=== PATIENT | female | born 1935 | race Caucasian/White ===

== ENCOUNTER → 2017-12-09 | Outpatient (CLI) | payer MEDICARE, BC ==
[2016-04-07 13:40] VITALS: BMI 25.1
[~2017-12-09] MED LIST: ACYC800T99 PO; AMLO-96 PO; AMLO-99 PO; AMLO2.5T74 PO; ARMTHY90PT PO; ATEN-65 PO; CAND16TA PO; CAND8TAB PO; CHOL10005 PO; CLOP75TA43 PO; CYAN25007 SL; DOXY-179; EPIN0.3P15 IM; EST42T PV; ETHI1TAB16 PO; ETHINYL ESTRADIOL PO; FAM20 PO; FISH1200 PO; FLUT15.88 NS; FLUT16SP19 NS; FLUV20CA3 PO; FURO-45 PO; GLUC-308 PO; HYDR-2963 PO; HYDR-2966 PO; HYDR-2970 PO; HYDR2TAB41 PO; HYDR473S9 PO; IPRA3AMP10 IH; LACT1CAP6 PO; LAN30PT PO; LANS15CA38 PO; LANS30CA70 PO; LEVO250T37 PO; LIO5 PO; LOS50 PO; LOSA50TA72 PO; METH4TAB57 PO; METO100T20 PO; MORP10SO10 PO; MULTIMINERAL PO; NITR-1 PO; NITR-106 PO; NITR25CA2 PO; NITR50CA35 PO; NYST15CR33 TP; OXYC5CAP21 PO; OXYGEN INH; PANTOTHENIC ACID 500 MG PO; PNEU0.5D3 IM; PRED20TA6 PO; PRI250 PO; PRIM250T73 PO; SPIR25TA80 PO; TOBOO OS; UBID100C48 PO; VITA1CAP48 PO; [UNRECOGNIZED DRUG - CODE] PO; [UNRECOGNIZED DRUG - CODE] PO; [UNRECOGNIZED DRUG - CODE] PO; [UNRECOGNIZED DRUG - CODE] PO; [UNRECOGNIZED DRUG - OTHER] PO
--- NOTE | 2017-12-09 14:09 | RADIOLOGY IMAGING REPORT ---
FACILITY: [facility] PATIENT NAME: CHARITY DE LOS SANTOS : [id number] MR: [id number] V: [id number] EXAM DATE: ORDERING PHYSICIAN: NEIL IVY TECHNOLOGIST: Jil Valera PROCEDURE:BILATERAL DIGITAL SCREENING MAMMOGRAM WITH CAD ASSISTED INTERPRETATION & 3D TOMOSYNTHESIS COMPARISON:Prior mammograms 10/24/16 & 06/19/15 & 12/17/13. INDICATIONS:SCREENING FINDINGS: The breast tissue is almost entirely fatty replaced. Benign vascular calcifications are noted. There is no dominant mass, suspicious cluster of microcalcifications or persistent areas of architectural distortion in either breast. DIAGNOSTIC CATEGORY 1--NEGATIVE. RECOMMENDATIONS: ROUTINE MAMMOGRAM AND CLINICAL EVALUATION IN 1 YEAR. IMPRESSION: BIRADS 1: Negative. Dictated by: Gustavo Rodriguez M.D. on 12/09/2017 at 13:52 Transcribed by: JULIO CESAR on 12/09/2017 at 14:00 Approved by: Gustavo Rodriguez M.D. on 12/09/2017 at 14:08 [facility]
== END ==
LOC: MAMO 01:54
PROVIDERS: ATTEND Emergency Medicine
DX: Z12.31 Encounter for screening mammogram for malignant neoplasm of breast (principal); R92.1 Mammographic calcification found on diagnostic imaging of breast
CPT/HCPCS: 77063; 77067

== ENCOUNTER → 2017-12-17 | Outpatient (REF) | payer MEDICARE, BC ==
[2016-04-07 13:40] VITALS: BMI 25.1
== END ==
LOC: ZZSENDIN 11:13
DX: N30.01 Acute cystitis with hematuria (principal); R82.79 Other abnormal findings on microbiological examination of urine
CPT/HCPCS: 81001; 87088

== ENCOUNTER → 2018-02-20 | Outpatient (CLI) | payer MEDICARE, BC ==
[2016-04-07 13:40] VITALS: BMI 25.1
[~2018-02-20] MED LIST changes: +AMLO-111 PO; +AMLO-113 PO; -AMLO-96 PO; -AMLO-99 PO; -AMLO2.5T74 PO; +AMLO2.5T76 PO; +CHOL100052 PO; +HYDR-4225 PO; -LOSA50TA72 PO; +LOSA50TA74 PO
[2018-02-20 09:53] LABS: PLATELET COUNT, AUTOMATED 287 K/uL (150-450)
[2018-02-20 10:37] LABS: LDL CHOLESTEROL 122 mg/dl
== END ==
LOC: LAB 09:27
PROVIDERS: ATTEND Emergency Medicine
DX: I10 Essential (primary) hypertension (principal); E03.9 Hypothyroidism, unspecified; E55.9 Vitamin D deficiency, unspecified
CPT/HCPCS: 36415; 82040; 82247; 82306; 82310; 82374; 82435; 82465; 82565; 82947; 83718; 84075; 84132; 84155; 84295; 84436; 84443; 84450; 84460; 84478; 84480; 84520; 85007; 85027

== ENCOUNTER 2018-06-04 12:50 | Emergency (ER) | payer MEDICARE, BC ==
[2016-04-07 13:40] VITALS: Wt 79.4 kg
[~2018-06-04 12:50] MED LIST changes: -AMLO-111 PO; -AMLO-113 PO; +AMLO-125 PO; +AMLO-127 PO; -AMLO2.5T76 PO; +AMLO2.5T78 PO; -LOSA50TA74 PO; +LOSA50TA80 PO; +OXYGENHOME INH
--- NOTE | 2018-06-04 13:05 | ER Report ---
History and Physical Time Seen By MD: 13:05 Hx. of Stated Complaint: pt presents with hx of having low sats at home.Told to come by pmd's office. Has had cough and sob for one week HPI/ROS CHIEF COMPLAINT: Shortness of breath, cough, increased oxygen demand HISTORY OF PRESENT ILLNESS: 82-year-old female patient presents to emergency room with complaint of shortness of breath, cough and increased oxygen demand. Patient states she's been sick for approximately one week. She states that she has had a frequent cough. She states she has been needing to wear her oxygen all the time. Her daughter states this been going on for the past month or so and not solely related to her illness. Patient states that today she checked her oxygen levels at home and she was in the 70s. She did switch over to her larger oxygen concentrator and that was able to keep her off about 90% on 2 L. She did call to her primary care provider who recommended coming to the emergency room for further evaluation. Patient denies having any fevers but states she has had chills. She denies any nausea, vomiting or diarrhea. Patient denies having any chest pain. REVIEW OF SYSTEMS: Respiratory: As noted above Cardiovascular: No chest pain, no palpitations. Gastrointestinal: No vomiting, no abdominal pain. Musculoskeletal: No back pain. Allergies: Coded Allergies: azithromycin (Verified Allergy, Severe, ANAPHYLAXIS, 02/02/17) prednisolone (Verified Allergy, Severe, ANAPHYLAXIS, 02/02/17) Cephalosporins (Verified Allergy, Intermediate, RASH, 02/02/17) Milk Containing Products (Verified Allergy, Intermediate, HIVES, SOB,DIARRHEA, 02/02/17) NSAIDS (Non-Steroidal Anti-Inflamma (Verified Allergy, Intermediate, stomach bleeds, 02/02/17) Penicillins (Verified Allergy, Intermediate, HIVES, 02/02/17) Sulfa (Sulfonamide Antibiotics) (Verified Allergy, Intermediate, NAUSEA/VOMITING, 02/02/17) acetaminophen (Verified Allergy, Intermediate, RASH, HEADACHES, 02/02/17) aspirin (Verified Allergy, Intermediate, stomach bleeds, 02/02/17) cephalexin (Verified Allergy, Intermediate, HIVES, 02/02/17) fluconazole (Verified Allergy, Intermediate, RASH, 02/02/17) lidocaine (Verified Allergy, Intermediate, SHOCK,HEADACHE W/LIDOCAINE/EPI, 02/02/17) lisinopril (Verified Allergy, Intermediate, RASH TO FACE AND CHEST, 02/02/17) phenytoin (Verified Allergy, Intermediate, FACIAL SWELLING, 02/02/17) terconazole (Verified Allergy, Intermediate, NAUSEA/VOMITING, 02/02/17) tetracycline (Verified Allergy, Intermediate, HAIR FALLS OUT, 02/02/17) valsartan (Verified Allergy, Intermediate, RASH, 02/02/17) docusate (Verified Allergy, Mild, rash, 02/02/17) insect venom (Verified Allergy, Mild, Hives, 02/02/17) tramadol (Verified Allergy, Mild, SWELLS UP, 02/02/17) vancomycin (Verified Allergy, Mild, RASH, 02/02/17) linezolid (Verified Adverse Reaction, Intermediate, CHEST PAIN, 02/02/17) olive oil (Verified Adverse Reaction, Mild, N/V, 02/02/17) Uncoded Allergies: Whitley (Adverse Reaction, Mild, N/V, 12/10/14) Home Meds Active Scripts Albuterol Sulfate (VENTOLIN HFA) 18 Gm Inh, 2 PUFF INH Q4-6H PRN for SHORTNESS OF BREATH, #1 INH Prov:TAMICA ARREDONDO [facility] 06/04/18 Guaifenesin/Codeine (GUAIFENESIN-CODEINE SYRUP) 5 Ml Syrp, 1 TSP PO QHS PRN for COUGH, #35 ML Prov:TAMICA ARREDONDO [facility] 06/04/18 Benzonatate 100 Mg Cap (TESSALON PERLE 100 MG CAP) 100 Mg Capsule, 100 MG PO TID PRN for COUGH, #15 CAP Prov:TAMICA ARREDONDO [facility] 06/04/18 Levofloxacin 500 Mg Tab (LEVAQUIN 500 MG TAB) 500 Mg Tablet, 500 MG PO DAILY, #10 TAB Prov:TAMICA ARREDONDO [employer] 06/04/18 Codeine Sulfate (CODEINE SULFATE) 30 Mg Tablet, 30-60 MG PO Q6H PRN for PAIN, #120 TAB Max of 60 tabs a month Prov:NEIL IVY MD 04/15/18 Hydrochlorothiazide (HYDROCHLOROTHIAZIDE) 25 Mg Tablet, 2 TAB PO QDAY, #180 TAB 4 Refills Prov:NEIL IVY MD 04/01/18 Thyroid (ARMOUR THYROID) 90 Mg Tab, 1 TAB PO QDAY, #90 TAB 3 Refills Prov:NEIL IVY MD 03/27/18 Oxygen (OXYGEN) Inha, 2 L INH PRN PRN for hypoxia, #1 UNIT 0 Refills Please dispense Inogen portable oxygen unit. Patient to wear 2 L oxygen continuously to maintain O2 > 88%. Prov:OMKAR LUCIA DNP, CR[employer]INOLOG[employer] TE[employer]ER-BC 03/20/18 Hydroxyzine Hcl (HYDROXYZINE HCL) 25 Mg Tablet, 25 MG PO QHS, #90 TAB 3 Refills 1-2 tabs at night Prov:NEIL IVY MD 01/23/18 Candesartan Cilexetil (CANDESARTAN CILEXETIL) 16 Mg Tablet, 1 TAB PO DAILY, #90 TAB 4 Refills Prov:NEIL IVY MD 02/11/17 Liothyronine Sodium (LIOTHYRONINE SODIUM) 5 Mcg Tablet, 3 TAB PO DAILY, #270 TAB 3 Refills Prov:NEIL IVY MD 02/11/17 Metoprolol Succinate (METOPROLOL SUCCINATE) 100 Mg Tab.er.24h, 1 TAB PO QDAY, #90 TAB 3 Refills Prov:NEIL IVY MD 02/11/17 Clopidogrel Bisulfate (PLAVIX) 75 Mg Tablet, 1 TAB PO QDAY, #90 TAB 3 Refills Prov:NEIL IVY MD 02/11/17 Primidone (PRIMIDONE) 250 Mg Tab, 0.5 TAB PO BID, #90 TAB 3 Refills Prov:NEIL IVY MD 02/11/17 Reported Medications Cholecalciferol (Vitamin D3) (VITAMIN D) 1,000 Unit Tablet, 1000 UNIT PO DAILY 02/20/18 Nitrofurantoin Macrocrystal (NITROFURANTOIN) 50 Mg Capsule, 50 MG PO BID, CAPSULE 02/19/18 [Ethinyl Estradiol] No Conflict Check, 0.02 MG PO DAILY 02/12/17 Past Medical/Surgical History Patient has a past medical history of neuropathy, seizures, A. fib, hypertension, spontaneous pneumothorax, reflux, interstitial cystitis, pyelonephritis, Achilles tendon rupture, cyst removal, arthritis, back pain, hypothyroidism. Patient has a surgical history of back surgery, bone harvest, right total hip, shoulder surgery, back surgery. Patient has a family medical history of cancer. Reviewed Nurses Notes: Yes Hx Smoking: No Smoking Status: Never Smoker Exposure to Second Hand Smoke?: No Hx Substance Use Disorder: No Hx Alcohol Use: No Constitutional Vital Sign - Last 24 Hours 06/04/18 06/04/18 06/04/18 06/04/18 12:56 12:58 13:00 13:04 Temp 99.7 Pulse 86 Resp 20 B/P (MAP) 140/91 140/91 (107) 142/69 (93) Pulse Ox 90 O2 Delivery Nasal Cannula O2 Flow Rate 2.0 06/04/18 06/04/18 06/04/18 06/04/18 13:05 13:28 13:28 13:30 Pulse 87 90 Resp 14 B/P (MAP) 132/82 (99) Pulse Ox 92 94 O2 Delivery Nasal Cannula O2 Flow Rate 3.0 06/04/18 06/04/18 13:35 14:00 Pulse 95 B/P (MAP) 119/66 (83) Pulse Ox 90 Physical Exam General Appearance: The patient is alert, has no immediate need for airway protection and no current signs of toxicity. Respiratory: Chest is non tender, lungs are diminished in the right upper lobe, otherwise clear to auscultation. Patient did have coughing with deep inspiration Cardiac: regular rate and rhythm Gastrointestinal: Abdomen is soft and non tender, no masses, bowel sounds normal. Musculoskeletal: Neck: Neck is supple and non tender. Extremities have full range of motion and are non tender. Skin: No rashes or lesions. DIFFERENTIAL DIAGNOSIS: After history and physical exam differential diagnosis was considered for shortness of breath including but not limited to pulmonary infectious process, COPD, asthma, pulmonary embolus and congestive heart failure. Medical Decision Making Data Points Result Diagram: 06/04/18 1306 06/04/18 1306 Laboratory Hematology Test 06/04/18 13:06 Red Blood Count 4.34 M/uL (4.17-5.56) Mean Corpuscular Volume 87.9 fL (80.0-96.0) Mean Corpuscular Hemoglobin 29.2 pg (26.0-33.0) Mean Corpuscular Hemoglobin Concent 33.2 g/dL (32.0-36.0) Red Cell Distribution Width 13.6 % (11.5-14.5) Mean Platelet Volume 8.2 fL (7.2-11.1) Neutrophils (%) (Auto) 83.2 % (39.4-72.5) Lymphocytes (%) (Auto) 11.0 % (17.6-49.6) Monocytes (%) (Auto) 4.9 % (4.1-12.4) Eosinophils (%) (Auto) 0.4 % (0.4-6.7) Basophils (%) (Auto) 0.5 % (0.3-1.4) Nucleated RBC Relative Count (auto) 0.0 /100WBC Neutrophils # (Auto) 11.9 K/uL (2.0-7.4) Lymphocytes # (Auto) 1.6 K/uL (1.3-3.6) Monocytes # (Auto) 0.7 K/uL (0.3-1.0) Eosinophils # (Auto) 0.1 K/uL (0.0-0.5) Basophils # (Auto) 0.1 K/uL (0.0-0.1) Nucleated RBC Absolute Count (auto) 0.00 K/uL Sodium Level 136 mmol/L (137-145) Potassium Level 3.3 mmol/L (3.5-5.0) Chloride Level 94 mmol/L (98-107) Carbon Dioxide Level 29 mmol/L (22-31) Blood Urea Nitrogen 18 mg/dl (7-18) Creatinine 0.80 mg/dl (0.52-1.04) Glomerular Filtration Rate Calc > 60.0 Random Glucose 218 mg/dl (75-110) Calcium Level 9.2 mg/dl (8.4-10.2) Total Bilirubin 0.7 mg/dl (0.2-1.3) Aspartate Amino Transf (AST/SGOT) 20 U/L (0-35) Alanine Aminotransferase (ALT/SGPT) 7 U/L (0-56) Alkaline Phosphatase 88 U/L (0-126) Troponin I < 0.012 ng/ml B-Type Natriuretic Peptide 207 pg/ml (0-100) Total Protein 7.5 g/dl (6.3-8.2) Albumin 4.1 g/dl (3.5-5.0) Chemistry Test 06/04/18 13:06 White Blood Count 14.3 k/uL (4.5-11.0) Red Blood Count 4.34 M/uL (4.17-5.56) Hemoglobin 12.7 g/dL (12.0-16.0) Hematocrit 38.1 % (34.0-47.0) Mean Corpuscular Volume 87.9 fL (80.0-96.0) Mean Corpuscular Hemoglobin 29.2 pg (26.0-33.0) Mean Corpuscular Hemoglobin Concent 33.2 g/dL (32.0-36.0) Red Cell Distribution Width 13.6 % (11.5-14.5) Platelet Count 291 K/uL (150-450) Mean Platelet Volume 8.2 fL (7.2-11.1) Neutrophils (%) (Auto) 83.2 % (39.4-72.5) Lymphocytes (%) (Auto) 11.0 % (17.6-49.6) Monocytes (%) (Auto) 4.9 % (4.1-12.4) Eosinophils (%) (Auto) 0.4 % (0.4-6.7) Basophils (%) (Auto) 0.5 % (0.3-1.4) Nucleated RBC Relative Count (auto) 0.0 /100WBC Neutrophils # (Auto) 11.9 K/uL (2.0-7.4) Lymphocytes # (Auto) 1.6 K/uL (1.3-3.6) Monocytes # (Auto) 0.7 K/uL (0.3-1.0) Eosinophils # (Auto) 0.1 K/uL (0.0-0.5) Basophils # (Auto) 0.1 K/uL (0.0-0.1) Nucleated RBC Absolute Count (auto) 0.00 K/uL Glomerular Filtration Rate Calc > 60.0 Calcium Level 9.2 mg/dl (8.4-10.2) Total Bilirubin 0.7 mg/dl (0.2-1.3) Aspartate Amino Transf (AST/SGOT) 20 U/L (0-35) Alanine Aminotransferase (ALT/SGPT) 7 U/L (0-56) Alkaline Phosphatase 88 U/L (0-126) Troponin I < 0.012 ng/ml B-Type Natriuretic Peptide 207 pg/ml (0-100) Total Protein 7.5 g/dl (6.3-8.2) Albumin 4.1 g/dl (3.5-5.0) EKG/Imaging Imaging Exam type: CHEST PA LAT History: RESP DISTRESS Comparison: May 23, 2016. Findings: Chronic central peribronchial thickening appears slightly more prominent when compared the prior study. No lobar infiltrates are seen. There is no evidence of pleural effusions or overt pulmonary edema. Cardiac silhouette is normal in size. There are postsurgical changes of the cervical and lumbar spine right shoulder. Moderate degenerative changes left shoulder also noted IMPRESSION: 1. Central peribronchial thickening appears more prominent when compared the prior study. This may represent progression of patient's chronic bronchitis although an acute peribronchial inflammatory process superimposed on patient's chronic findings as in the differential diagnosis Report Dictated By: Tatum Hays MD at 06/04/2018 1:56 PM Report E-Signed By: Tatum Hays MD at 06/04/2018 1:58 PM ED Course/Re-evaluation ED Course Patient was admitted to an exam room, history and physical were obtained. Differential diagnoses were considered. On examination lungs are diminished in the right upper lobe, heart was regular, abdomen soft nontender. An IV was started, a CBC, CMP, troponin, EKG, chest x-ray were done. Patient did have an elevated white count of 14,300, CMP was unremarkable, troponin was negative, EKG showed a wide QRS complex with occasional PVC. Chest x-ray did show some inflammation in the right middle lobe. I believe this is likely a pneumonia especially with the elevated white count. I discussed the findings with the patient and her family member. We will go ahead and put her on Levaquin 500 milligrams daily 10 days. We will also do Tessalon Perles, guaifenesin with codeine cough syrup and an inhaler. She is follow-up with her primary care provider in early part of next week. She is return to emergency room if condition worsens. Patient and her daughter verbalized understanding and agreement with plan. Decision to Disposition Date: Jun 04, 2018 Decision to Disposition Time: 14:36 Depart Departure Latest Vital Signs Vital Signs Date Time Temp Pulse Resp B/P (MAP) Pulse Ox O2 Delivery O2 Flow Rate FiO2 06/04/18 14:00 119/66 (83) 06/04/18 13:35 95 90 06/04/18 13:28 14 06/04/18 13:28 Nasal Cannula 3.0 06/04/18 12:56 99.7 Impression: Primary Impression: Pneumonia Condition: Improved Disposition: HOME OR SELF-CARE Referrals: NEIL IVY MD (PCP) New Scripts Albuterol Sulfate (VENTOLIN HFA) 18 Gm Inh 2 PUFF INH Q4-6H PRN for SHORTNESS OF BREATH, #1 INH Prov: TAMICA ARREDONDO [facility] 06/04/18 Guaifenesin/Codeine (GUAIFENESIN-CODEINE SYRUP) 5 Ml Syrp 1 TSP PO QHS PRN for COUGH, #35 ML Prov: TAMICA ARREDONDO [facility] 06/04/18 Benzonatate 100 Mg Cap (TESSALON PERLE 100 MG CAP) 100 Mg Capsule 100 MG PO TID PRN for COUGH, #15 CAP Prov: TAMICA ARREDONDO [facility] 06/04/18 Levofloxacin 500 Mg Tab (LEVAQUIN 500 MG TAB) 500 Mg Tablet 500 MG PO DAILY, #10 TAB Prov: TAMICA ARREDONDO [facility] 06/04/18 Patient Instructions: Community Acquired Pneumonia (ED) Additional Instructions: Increase fluid intake. Get plenty of rest. Follow up with your primary care provider in the early part of next week. Take the medication as prescribed. Return to the ER if condition worsens. Wear the oxygen at 2-3 litres for the next 3-5 days and then you can start tapering it down. Continue with current diet. Exercise as tolerated. Problem Qualifiers Primary Impression: Pneumonia Pneumonia type: due to unspecified organism Laterality: right Lung location: middle lobe of lung Qualified Codes: J18.1 - Lobar pneumonia, unspecified organism TAMICA ARREDONDO [facility] Jun 04, 2018 13:05
[2018-06-04] MEDS ORDERED: ALBUTEROL/IPRATROPIUM 3 ML NEB NEB ONE (13:10)
[2018-06-04 13:18] LABS: PLATELET COUNT, AUTOMATED 291 K/uL (150-450)
--- NOTE | 2018-06-04 13:56 | EKG ---
FACILITY: [facility] - [place] PATIENT NAME: CHARITY DE LOS SANTOS : [id number] MR: [id number] V: [id number] EXAM DATE: ORDERING PHYSICIAN: TAMICA ARREDONDO TECHNOLOGIST: JUVE Test Reason : SOB, COUGH Blood Pressure : / mmHG Vent. Rate : 089 BPM Atrial Rate : 312 BPM P-R Int : 000 ms QRS Dur : 080 ms QT Int : 372 ms P-R-T Axes : 000 065 073 degrees QTc Int : 452 ms Atrial fibrillation Poor R wave progression through precordial leads - question previous infarct Nonspecific ST findings in limb leads Abnormal ECG No previous ECGs available Confirmed by RAMO CASTREJON ([id number]) on 06/04/2018 2:53:56 PM Referred By: YISEL Confirmed By:RAMO CASTREJON
[2018-06-04 14:00] VITALS: BP 119/66
--- NOTE | 2018-06-04 14:02 | RADIOLOGY IMAGING REPORT ---
FACILITY: [facility] - [place] PATIENT NAME: Mercy Aguilar : 1935 MR: [id number] V: [id number] EXAM DATE: ORDERING PHYSICIAN: TAMICA ARREDONDO TECHNOLOGIST: Location: [facility] [place] Patient: Mercy Aguilar : 1935 Visit/Account:[id number] Date of Sevice: 06/04/2018 Exam type: CHEST PA LAT History: RESP DISTRESS Comparison: May 23, 2016. Findings: Chronic central peribronchial thickening appears slightly more prominent when compared the prior stud y. No lobar infiltrates are seen. There is no evidence of pleural effusions or overt pulmonary huy a. Cardiac silhouette is normal in size. There are postsurgical changes of the cervical and lumbar spine right shoulder. Moderate degenerative changes left shoulder also noted IMPRESSION: 1. Central peribronchial thickening appears more prominent when compared the prior study. This may represent progression of patient's chronic bronchitis although an acute peribronchial inflammatory pr ocess superimposed on patient's chronic findings as in the differential diagnosis Report Dictated By: Tatum Hays MD at 06/04/2018 1:56 PM Report E-Signed By: Tatum Hays MD at 06/04/2018 1:58 PM WSN:[email or web address]
[2018-06-04] MEDS ORDERED: BENZ100C4 PO (14:33)
[2018-06-04] MEDS ORDERED: ROBC PO (14:33)
[2018-06-04] MEDS ORDERED: LEVO-85 PO (14:33)
[2018-06-04] MEDS ORDERED: ALB18R INH (14:34)
[2018-06-08] MEDS ORDERED: PRI250 PO (13:46)
== END 2018-06-04 14:52 | disposition home or self-care (01) ==
LOC: ER 13:02
DX: J18.1 Lobar pneumonia, unspecified organism (principal); I48.91 Unspecified atrial fibrillation
CPT/HCPCS: 71046; 83880; 84484; 85025; 93005; 94640; 99284; J7620; 82040; 82247; 82310; 82374; 82435; 82565; 82947; 84075; 84132; 84155; 84295; 84450; 84460; 84520

== ENCOUNTER → 2018-06-10 | Outpatient (CLI) | payer MEDICARE, BC ==
[2016-04-07 13:40] VITALS: BMI 25.1
[~2018-06-10] MED LIST changes: +ALB18R INH; +BENZ100C4 PO; +LEVO-85 PO; +POTA20TA94 PO; +ROBC PO
[2018-06-10 16:51] LABS: PLATELET COUNT, AUTOMATED 358 K/uL (150-450)
--- NOTE | 2018-06-10 17:11 | RADIOLOGY IMAGING REPORT ---
FACILITY: [facility] PATIENT NAME: Mercy Aguilar : 1935 MR: [id number] V: [id number] EXAM DATE: ORDERING PHYSICIAN: NEIL IVY TECHNOLOGIST: [place] [facility] [place]: Mercy Aguilar : 1935 Visit/Account:[id number] Date of Sevice: 06/10/2018 Exam type: CHEST PA LAT History: pneumonia Comparison: June 04, 2018. Findings: Central peribronchial thickening is again noted appearing similar to the prior study on the PA view. On the lateral view there appears to be slight increased linear stranding in the right middle lobe w hich may represent interval worsening. There is mild blunting the right costophrenic angle consisten t with a small right pleural effusion. Cardiac silhouette is unchanged in size. Postsurgical change s of the right shoulder cervical and lumbar spine again seen IMPRESSION: 1. Central peribronchial thickening appears some are to the prior study on the PA view although ther e is mild increase in the linear stranding the right middle lobe on the lateral view which may repres ent interval worsening of patient's bronchitis. Small right pleural effusion Results were called to NEIL IVY at 06/10/2018 5:07 PM. Report Dictated By: Tatum Hays MD at 06/10/2018 5:05 PM Report E-Signed By: Tatum Hays MD at 06/10/2018 5:07 PM WSN:[email or web address]
== END ==
LOC: LAB 16:16
PROVIDERS: ATTEND Emergency Medicine
DX: J18.9 Pneumonia, unspecified organism (principal)
CPT/HCPCS: 36415; 71046; 82310; 82374; 82435; 82565; 82947; 84132; 84295; 84520; 85025

== ENCOUNTER → 2018-09-03 | Outpatient (CLI) | payer MEDICARE, BC ==
[2016-04-07 13:40] VITALS: BMI 25.1
[~2018-09-03] MED LIST changes: +IPRN ENA; +MOME220A3 INH
--- NOTE | 2018-09-03 16:35 | RADIOLOGY IMAGING REPORT ---
[place] [facility] [place] Mercy Aguilar : 1935 MR: [id number] V: [id number] EXAM DATE: ORDERING PHYSICIAN: NEIL IVY TECHNOLOGIST: Location: [facility] Patient: Mercy Aguilar : 1935 Visit/Account:[id number] Date of Sevice: 09/03/2018 Exam type: CHEST PA LAT History: cough since April Comparison: June 10, 2018. Findings: There is extensive central peribronchial thickening bilaterally although appears similar to the prior study. No lobar infiltrates are identified. There is no evidence of pleural effusions or overt pul monary edema. The cardiac silhouette is unchanged in size. There are postsurgical changes of the sandra mbar spine, cervical spine and right shoulder IMPRESSION: 1. Central peribronchial thickening appears similar to the prior study. No acute appearing new area s of primary consolidation are identified Report Dictated By: Tatum Hays MD at 09/03/2018 4:29 PM Report E-Signed By: Tatum Hays MD at 09/03/2018 4:30 PM WSN:[email or web address]
== END ==
LOC: RAD 15:46
PROVIDERS: ATTEND Emergency Medicine
DX: R05 Cough (principal)
CPT/HCPCS: 71046

== ENCOUNTER 2018-09-29 16:47 | Emergency (ER) | payer MEDICARE, BC ==
[2016-04-07 13:40] VITALS: Wt 79.4 kg
--- NOTE | 2018-09-29 16:58 | ER Report ---
History and Physical Time Seen By MD: 16:58 HPI/ROS CHIEF COMPLAINT: Right elbow and wrist pain HISTORY OF PRESENT ILLNESS: 83-year-old female patient presents to emergency room with complaint of right elbow and wrist pain. Patient states that she's been having pain for the past couple of days. Patient states he movement seems to make the pain worse. She denies any fevers, chills, nausea, vomiting or diarrhea. Patient states she's not taking any medication for this. She states she did discuss her problem with Dr. Huerta, accreditation specialist, who requested that she come to the emergency room for further evaluation. Patient denies any trauma to the elbow or the wrist. REVIEW OF SYSTEMS: Respiratory: No cough, no dyspnea. Cardiovascular: No chest pain, no palpitations. Gastrointestinal: No vomiting, no abdominal pain. Musculoskeletal: As noted above Allergies: Coded Allergies: azithromycin (Verified Allergy, Severe, ANAPHYLAXIS, 09/29/18) prednisolone (Verified Allergy, Severe, ANAPHYLAXIS, 09/29/18) Cephalosporins (Verified Allergy, Intermediate, RASH, 09/29/18) Milk Containing Products (Verified Allergy, Intermediate, HIVES, SOB,DIARRHEA, 09/29/18) NSAIDS (Non-Steroidal Anti-Inflamma (Verified Allergy, Intermediate, stomach bleeds, 09/29/18) Penicillins (Verified Allergy, Intermediate, HIVES, 09/29/18) Sulfa (Sulfonamide Antibiotics) (Verified Allergy, Intermediate, NAUSE A/VOMITING, 09/29/18) acetaminophen (Verified Allergy, Intermediate, RASH, HEADACHES, 09/29/18) aspirin (Verified Allergy, Intermediate, stomach bleeds, 09/29/18) cephalexin (Verified Allergy, Intermediate, HIVES, 09/29/18) fluconazole (Verified Allergy, Intermediate, RASH, 09/29/18) lidocaine (Verified Allergy, Intermediate, SHOCK,HEADACHE W/LIDOCAINE/EPI, 09/29/18) lisinopril (Verified Allergy, Intermediate, RASH TO FACE AND CHEST, 09/29/18) phenytoin (Verified Allergy, Intermediate, FACIAL SWELLING, 09/29/18) terconazole (Verified Allergy, Intermediate, NAUSEA/VOMITING, 09/29/18) tetracycline (Verified Allergy, Intermediate, HAIR FALLS OUT, 09/29/18) valsartan (Verified Allergy, Intermediate, RASH, 09/29/18) docusate (Verified Allergy, Mild, rash, 09/29/18) insect venom (Verified Allergy, Mild, Hives, 09/29/18) tramadol (Verified Allergy, Mild, SWELLS UP, 09/29/18) vancomycin (Verified Allergy, Mild, RASH, 09/29/18) linezolid (Verified Adverse Reaction, Intermediate, CHEST PAIN, 09/29/18) olive oil (Verified Adverse Reaction, Mild, N/V, 09/29/18) Uncoded Allergies: [place] (Adverse Reaction, Mild, N/V, 12/10/14) Home Meds Active Scripts Levofloxacin 500 Mg Tab (LEVAQUIN 500 MG TAB) 500 Mg Tablet, 500 MG PO DAILY, #7 TAB Prov:TAMICA ARREDONDO 09/29/18 Metoprolol Succinate (METOPROLOL SUCCINATE) 100 Mg Tab.er.24h, 1 TAB PO QDAY, #90 TAB 3 Refills Prov:NEIL IVY MD 09/11/18 Mometasone Furoate (ASMANEX) 220 Mcg [place], 2 INHALATION INH BID, #1 INHALER Prov:NEIL IVY MD 09/03/18 Ipratropium [place] 0.03% Ns (IPRATROPIUM BROMIDE 0.03% NS) 21 Mcg [place], 2 SPRAYS YARITZA TID, #1 BOTTLE 11 Refills Prov:NEIL IVY MD 09/03/18 Albuterol Sulfate (VENTOLIN HFA) 18 Gm Inh, 2 PUFF INH Q4-6H PRN for SHORTNESS OF BREATH, #1 INH Prov:NEIL IVY MD 09/03/18 Codeine Sulfate (CODEINE SULFATE) 30 Mg Tablet, 30-60 MG PO Q6H PRN for PAIN, #120 TAB Max of 60 tabs a month Prov:NEIL IVY MD 09/03/18 Guaifenesin/Codeine (GUAIFENESIN-CODEINE SYRUP) 5 Ml Syrp, 1 TSP PO QHS PRN for COUGH, #35 ML Prov:NEIL IVY MD 09/03/18 Hydroxyzine Hcl (HYDROXYZINE HCL) 25 Mg Tablet, 25 MG PO QHS, #90 TAB 3 Refills 1-2 tabs at night Prov:NEIL IVY MD 09/03/18 Clopidogrel Bisulfate (PLAVIX) 75 Mg Tablet, 1 TAB PO QDAY, #90 TAB 3 Refills Prov:NEIL IVY MD 07/31/18 Potassium Chloride (POTASSIUM CHLORIDE) 20 Meq Tab.er.prt, 20 MEQ PO QDAY, #90 TAB 1 Refill Prov:NEIL IVY MD 06/11/18 Primidone (PRIMIDONE) 250 Mg Tab, 0.5 TAB PO BID, #90 TAB 2 Refills Prov:NEIL IVY MD 06/08/18 Hydrochlorothiazide (HYDROCHLOROTHIAZIDE) 25 Mg Tablet, 2 TAB PO QDAY, #180 TAB 4 Refills Prov:NEIL IVY MD 04/01/18 Thyroid (ARMOUR THYROID) 90 Mg Tab, 1 TAB PO QDAY, #90 TAB 3 Refills Prov:NEIL IVY MD 03/27/18 Oxygen (OXYGEN) [place], 2 L INH PRN PRN for hypoxia, #1 UNIT 0 Refills Please dispense Inogen portable oxygen unit. Patient to wear 2 L oxygen continuously to maintain O2 > 88%. Prov:OMKAR LUCIA DNP, READY TO WEAR DEPARTMENT MANAGER-BC 03/20/18 Candesartan Cilexetil (CANDESARTAN CILEXETIL) 16 Mg Tablet, 1 TAB PO DAILY, #90 TAB 4 Refills Prov:NEIL IVY MD 02/11/17 Liothyronine Sodium (LIOTHYRONINE SODIUM) 5 Mcg Tablet, 3 TAB PO DAILY, #270 TAB 3 Refills Prov:NEIL IVY MD 02/11/17 Reported Medications Cholecalciferol (Vitamin D3) (VITAMIN D) 1,000 Unit Tablet, 1000 UNIT PO DAILY 02/20/18 Nitrofurantoin Macrocrystal (NITROFURANTOIN) 50 Mg Capsule, 50 MG PO BID, CAPSULE 02/19/18 [Ethinyl Estradiol] No Conflict Check, 0.02 MG PO DAILY 02/12/17 Past Medical/Surgical History Patient has a past medical history of neuropathy, seizures, A. fib, hypertension, spontaneous pneumo, reflux, interstitial cystitis, pyelonephritis, frequent UTI, arthritis, back pain, hypothyroidism. Patient has a surgical history of back surgery, shoulder surgery, hysterectomy, appendectomy, Achilles tendon repair, ganglion cyst removed. Patient has a family medical history of cancer. Reviewed Nurses Notes: Yes Hx Smoking: No Smoking Status: Never Smoker Exposure to Second Hand Smoke?: No Hx Substance Use Disorder: No Hx Alcohol Use: No Constitutional Vital Sign - Last 24 Hours 09/29/18 09/29/18 09/29/18 09/29/18 17:00 17:00 17:30 18:00 Temp 99.4 Pulse 87 86 87 76 Resp 24 B/P (MAP) 165/73 131/58 (82) 125/52 (76) Pulse Ox 93 91 88 O2 Delivery Nasal Cannula 09/29/18 18:30 Pulse 76 B/P (MAP) 127/66 (86) Pulse Ox 92 Physical Exam General Appearance: The patient is alert, has no immediate need for airway protection and no current signs of toxicity. Respiratory: Chest is non tender, lungs are clear to auscultation. Cardiac: regular rate and rhythm Gastrointestinal: Abdomen is soft and non tender, no masses, bowel sounds normal. Musculoskeletal: Neck: Neck is supple and non tender. Extremities have full range of motion and are non tender. Patient has redness and tenderness to the right elbow, as well as the right wrist. He is warm to the touch. Skin: No rashes or lesions. DIFFERENTIAL DIAGNOSIS: After history and physical exam differential diagnosis w as considered for cellulitis, septic joint, inflammation of joints. Medical Decision Making Data Points Result Diagram: 09/29/18 1728 09/29/18 1728 Laboratory Hematology Test 09/29/18 17:28 Red Blood Count 4.77 M/uL (4.17-5.56) Mean Corpuscular Volume 87.3 fL (80.0-96.0) Mean Corpuscular Hemoglobin 28.8 pg (26.0-33.0) Mean Corpuscular Hemoglobin Concent 33.0 g/dL (32.0-36.0) Red Cell Distribution Width 14.3 % (11.5-14.5) Mean Platelet Volume 8.1 fL (7.2-11.1) Neutrophils (%) (Auto) 70.2 % (39.4-72.5) Lymphocytes (%) (Auto) 21.2 % (17.6-49.6) Monocytes (%) (Auto) 6.7 % (4.1-12.4) Eosinophils (%) (Auto) 1.3 % (0.4-6.7) Basophils (%) (Auto) 0.6 % (0.3-1.4) Nucleated RBC Relative Count (auto) 0.0 /100WBC Neutrophils # (Auto) 7.9 K/uL (2.0-7.4) Lymphocytes # (Auto) 2.4 K/uL (1.3-3.6) Monocytes # (Auto) 0.8 K/uL (0.3-1.0) Eosinophils # (Auto) 0.1 K/uL (0.0-0.5) Basophils # (Auto) 0.1 K/uL (0.0-0.1) Nucleated RBC Absolute Count (auto) 0.00 K/uL Erythrocyte Sedimentation Rate 55 mm/HOUR (0-30) Sodium Level 135 mmol/L (137-145) Potassium Level 3.5 mmol/L (3.5-5.0) Chloride Level 92 mmol/L (98-107) Carbon Dioxide Level 30 mmol/L (22-31) Blood Urea Nitrogen 20 mg/dl (7-18) Creatinine 0.90 mg/dl (0.52-1.04) Glomerular Filtration Rate Calc 59.8 Random Glucose 132 mg/dl (75-110) Calcium Level 9.6 mg/dl (8.4-10.2) Total Bilirubin 0.5 mg/dl (0.2-1.3) Aspartate Amino Transf (AST/SGOT) 25 U/L (0-35) Alanine Aminotransferase (ALT/SGPT) 8 U/L (0-56) Alkaline Phosphatase 83 U/L (0-126) C-Reactive Protein 8.6 mg/dl (<1.0) Total Protein 7.9 g/dl (6.3-8.2) Albumin 4.5 g/dl (3.5-5.0) Chemistry Test 09/29/18 17:28 White Blood Count 11.3 k/uL (4.5-11.0) Red Blood Count 4.77 M/uL (4.17-5.56) Hemoglobin 13.7 g/dL (12.0-16.0) Hematocrit 41.6 % (34.0-47.0) Mean Corpuscular Volume 87.3 fL (80.0-96.0) Mean Corpuscular Hemoglobin 28.8 pg (26.0-33.0) Mean Corpuscular Hemoglobin Concent 33.0 g/dL (32.0-36.0) Red Cell Distribution Width 14.3 % (11.5-14.5) Platelet Count 320 K/uL (150-450) Mean Platelet Volume 8.1 fL (7.2-11.1) Neutrophils (%) (Auto) 70.2 % (39.4-72.5) Lymphocytes (%) (Auto) 21.2 % (17.6-49.6) Monocytes (%) (Auto) 6.7 % (4.1-12.4) Eosinophils (%) (Auto) 1.3 % (0.4-6.7) Basophils (%) (Auto) 0.6 % (0.3-1.4) Nucleated RBC Relative Count (auto) 0.0 /100WBC Neutrophils # (Auto) 7.9 K/uL (2.0-7.4) Lymphocytes # (Auto) 2.4 K/uL (1.3-3.6) Monocytes # (Auto) 0.8 K/uL (0.3-1.0) Eosinophils # (Auto) 0.1 K/uL (0.0-0.5) Basophils # (Auto) 0.1 K/uL (0.0-0.1) Nucleated RBC Absolute Count (auto) 0.00 K/uL Erythrocyte Sedimentation Rate 55 mm/HOUR (0-30) Glomerular Filtration Rate Calc 59.8 Calcium Level 9.6 mg/dl (8.4-10.2) Total Bilirubin 0.5 mg/dl (0.2-1.3) Aspartate Amino Transf (AST/SGOT) 25 U/L (0-35) Alanine Aminotransferase (ALT/SGPT) 8 U/L (0-56) Alkaline Phosphatase 83 U/L (0-126) C-Reactive Protein 8.6 mg/dl (<1.0) Total Protein 7.9 g/dl (6.3-8.2) Albumin 4.5 g/dl (3.5-5.0) EKG/Imaging Imaging EXAMINATION: Right elbow, 3 views Right wrist, 3 views 09/29/2018 5:08 PM HISTORY: pain COMPARISON: Right elbow 04/09/2013, right wrist 01/23/2010 FINDINGS: Elbow: Areas of degenerative spurring and calcification. No acute bony finding. Joint effusion is present with displacement of the periarticular fat pads. Wrist: Osteopenia. Degenerative changes along the radiocarpal articulation and the scaphotrapezial joints. Slight widening of the scapholunate joint space. Calcifications along the TFCC and volar to the wrist. No acute-appearing bony finding. IMPRESSION: 1. Right elbow joint effusion. Degenerative changes but no acute bony finding in the elbow. 2. Progressive degenerative changes in the right wrist with calcifications which may reflect loose bodies and/or hydroxyapatite deposition. No acute bony finding in the right wrist. Report Dictated By: Thaddeus Guerra MD at 09/29/2018 6:19 PM Report E-Signed By: Thaddeus Guerra MD at 09/29/2018 6:24 PM ED Course/Re-evaluation ED Course Patient was admitted to the exam room, history and physical were obtained. Differential diagnoses were considered. On examination lungs are clear, heart is regular, abdomen is soft and nontender. The skin around the elbow and the wrist were erythematous, warm to touch. An IV was started, CBC, CMP, CRP, ESR were obtained. Next was done of the right elbow as well as the right wrist. X-ray showed no acute findings. There was a joint effusion around the right elbow. Lab work showed a slightly elevated white count of 11.3, CRP and ESR were elevated. I discussed the findings with the patient and her family. Is my belief that this is likely an inflammatory process in nature. However with the redness to the skin I'm concerned about possible cellulitis. We will go ahead and treat her with antibiotics. I discussed this with the patient. We discussed options as far as antibiotics. I was intending on doing doxycycline. Patient refused stating that she has such a hard time with antibiotics that she prefer to stick with what works. She requested that we use Levaquin. We will go ahead and use Le vaquin 500 mg one tab by mouth daily 7 days. We'll have her follow-up with orthopedics. She is follow-up with either primary bone joint or orthopedics to the [facility]. Patient and her family verbalized understanding and agreement with plan. Decision to Disposition Date: September 29, 2018 Decision to Disposition Time: 18:49 Depart Departure Latest Vital Signs Vital Signs Date Time Temp Pulse Resp B/P (MAP) Pulse Ox O2 Delivery O2 Flow Rate FiO2 09/29/18 18:30 76 127/66 (86) 92 09/29/18 17:00 99.4 24 Nasal Cannula Impression: Primary Impression: Cellulitis of right elbow Additional Impression: Cellulitis of right wrist Condition: Improved Disposition: HOME OR SELF-CARE Referrals: NEIL IVY MD (PCP) New Scripts Levofloxacin 500 Mg Tab (LEVAQUIN 500 MG TAB) 500 Mg Tablet 500 MG PO DAILY, #7 TAB Prov: TAMICA ARREDONDO 09/29/18 Patient Instructions: Cellulitis (ED) Additional Instructions: Limit activity by pain. Get plenty of rest. [facility] up with [facility] [address] [place] [address] . Wear the sling 23/24 hours a day, you may take it off to shower or get dressed. Problem Qualifiers TAMICA ARREDONDO September 29, 2018 16:58
[2018-09-29 17:51] LABS: PLATELET COUNT, AUTOMATED 320 K/uL (150-450)
--- NOTE | 2018-09-29 18:29 | RADIOLOGY IMAGING REPORT ---
FACILITY: [facility] [place] PATIENT NAME: Mercy Aguilar : 1935 MR: [id number] V: [id number] EXAM DATE: ORDERING PHYSICIAN: TAMICA ARREDONDO TECHNOLOGIST: Location: [facility] Patient: Mercy Aguilar : 1935 Visit/Account:[id number] Date of Sevice: 09/29/2018 EXAMINATION: Right elbow, 3 views Right wrist, 3 views 09/29/2018 5:08 PM HISTORY: pain COMPARISON: Right elbow 04/09/2013, right wrist 01/23/2010 FINDINGS: Elbow: Areas of degenerative spurring and calcification. No acute bony finding. Joint effusion is pre sent with displacement of the periarticular fat pads. Wrist: Osteopenia. Degenerative changes along the radiocarpal articulation and the scaphotrapezial aayush ints. Slight widening of the scapholunate joint space. Calcifications along the TFCC and volar to the wrist. No acute-appearing bony finding. IMPRESSION: 1. Right elbow joint effusion. Degenerative changes but no acute bony finding in the elbow. 2. Progressive degenerative changes in the right wrist with calcifications which may reflect loose stephan dies and/or hydroxyapatite deposition. No acute bony finding in the right wrist. Report Dictated By: Thaddeus Guerra MD at 09/29/2018 6:19 PM Report E-Signed By: Thaddeus Guerra MD at 09/29/2018 6:24 PM WSN:[id number]
--- NOTE | 2018-09-29 18:29 | RADIOLOGY IMAGING REPORT ---
FACILITY: [facility] [place] PATIENT NAME: Mercy Aguilar : 1935 MR: [id number] V: [id number] EXAM DATE: ORDERING PHYSICIAN: TAMICA ARREDONDO TECHNOLOGIST: Location: [facility] Patient: Mercy Aguilar : 1935 Visit/Account:[id number] Date of Sevice: 09/29/2018 EXAMINATION: Right elbow, 3 views Right wrist, 3 views 09/29/2018 5:08 PM HISTORY: pain COMPARISON: Right elbow 04/09/2013, right wrist 01/23/2010 FINDINGS: Elbow: Areas of degenerative spurring and calcification. No acute bony finding. Joint effusion is pre sent with displacement of the periarticular fat pads. Wrist: Osteopenia. Degenerative changes along the radiocarpal articulation and the scaphotrapezial aayush ints. Slight widening of the scapholunate joint space. Calcifications along the TFCC and volar to the wrist. No acute-appearing bony finding. IMPRESSION: 1. Right elbow joint effusion. Degenerative changes but no acute bony finding in the elbow. 2. Progressive degenerative changes in the right wrist with calcifications which may reflect loose stephan dies and/or hydroxyapatite deposition. No acute bony finding in the right wrist. Report Dictated By: Thaddeus Guerra MD at 09/29/2018 6:19 PM Report E-Signed By: Thaddeus Guerra MD at 09/29/2018 6:24 PM WSN:[id number]
[2018-09-29 18:30] VITALS: BP 127/66
[2018-09-29] MEDS ORDERED: LEVO-85 PO (18:47)
== END 2018-09-29 18:59 | disposition home or self-care (01) ==
LOC: ER 17:09
DX: L03.113 Cellulitis of right upper limb (principal)
CPT/HCPCS: 73080; 73110; 85025; 85651; 86140; 99284; A4565; 82040; 82247; 82310; 82374; 82435; 82565; 82947; 84075; 84132; 84155; 84295; 84450; 84460; 84520

== ENCOUNTER → 2018-11-06 | Outpatient (CLI) | payer MEDICARE, BC ==
[2016-04-07 13:40] VITALS: BMI 25.1
[~2018-11-06] MED LIST changes: +LIOT5TAB PO
== END ==
LOC: SPU 15:39
DX: N30.01 Acute cystitis with hematuria (principal)
CPT/HCPCS: 51701; 81001; 87088